=== PATIENT | female | born 1945 | race Caucasian/White ===

== ENCOUNTER 2017-05-06 19:48 | Emergency (ER) | payer BC ==
[2017-05-06] MEDS ORDERED: solu-MEDROL 125 MG IV ONE (21:02)
[2017-05-06] MEDS ORDERED: DUONEB 0.5-3 MG/3 ml Neb IH ONE ×2 (21:02→21:08)
--- NOTE | 2017-05-06 21:02 | ERPHSYRPT ---
- History of Present Illness Time Seen by Provider: 05/06/17 20:57 Source: patient Exam Limitations: no limitations Patient Subjective Stated Complaint: pt states she has been coughing for 5 days. states she has tried saline spray and neti pot with no relief. today she was coughing and had nose bleed. Triage Nursing Assessment: pt alert and oreinted, asnwers questions approp. pt ambulatory with steady gait noted. skin pink warm and dry. respirations nonlabored, lungs with exp wheeze throughout. frequent hacking cough noted. Physician History: The patient is a 71-year-old female with her complaining of a increasing cough for 5 days. She denies fever or chills. She denies shortness of breath. She does not smoke. Her past medical history is significant for hypothyroidism. Timing/Duration: day(s) (5) Cough Quality/Degree: severe, dry cough Possible Cause: no prior episodes Modifying Factors: Improves With: nothing Associated Symptoms: cough Allergies/Adverse Reactions: No Known Drug Allergies Allergy (Unverified 05/06/17 20:09) Home Medications: Levothyroxine Sodium 112 Mcg [Synthroid 112 Mcg] 112 mcg PO DAILY 05/06/17 [History] Hx Tetanus, Diphtheria Vaccination/Date Given: Yes Hx Influenza Vaccination/Date Given: No Hx Pneumococcal Vaccination/Date Given: No Immunizations Up to Date: Yes - Review of Systems Constitutional: No Fever, No Chills Eyes: No Symptoms Ears, Nose, & Throat: No Symptoms Respiratory: Cough Cardiac: No Chest Pain, No Edema, No Syncope Abdominal/Gastrointestinal: No Abdominal Pain, No Nausea, No Vomiting, No Diarrhea Genitourinary Symptoms: No Dysuria Musculoskeletal: No Back Pain, No Neck Pain Skin: No Rash Neurological: No Dizziness, No Focal Weakness, No Sensory Changes Psychological: No Symptoms Endocrine: No Symptoms Hematologic/Lymphatic: No Symptoms Immunological/Allergic: No Symptoms All Other Systems: Reviewed and Negative - Past Medical History Pertinent Past Medical History: Yes Neurological History: No Pertinent History ENT History: No Pertinent History Cardiac History: No Pertinent History Respiratory History: No Pertinent History Endocrine Medical History: Hypothyroidism Musculoskeletal History: No Pertinent History GI Medical History: No Pertinent History History: No Pertinent History Psycho-Social History: No Pertinent History Female Reproductive Disorders: No Pertinent History - Past Surgical History Past Surgical History: Yes Musculoskeletal: Orthopedic Surgery Other Surgical History: index finger, bunionectomy lt ft - Social History Smoking Status: Never smoker Exposure to second hand smoke: No Drug Use: none Patient Lives Alone: No - Nursing Vital Signs Nursing Vital Signs: Initial Vital Signs Temperature 98.2 F Temperature Source Oral Pulse Rate 71 Respiratory Rate 16 Blood Pressure [] 141/79 Pain Intensity 5 - Physical Exam General Appearance: mild distress Eye Exam: PERRL/EOMI, eyes nml inspection Ears, Nose, Throat Exam: normal ENT inspection, TMs normal, pharynx normal, moist mucous membranes Neck Exam: normal inspection, non-tender, supple, full range of motion Respiratory Exam: wheezing Cardiovascular Exam: regular rate/rhythm, normal heart sounds Gastrointestinal/Abdomen Exam: soft, No tenderness Pelvic Exam: not done Rectal Exam: not done Back Exam: normal inspection, No CVA tenderness, No vertebral tenderness Extremity Exam: normal inspection, normal range of motion Neurologic Exam: alert, oriented x 3, cooperative, normal mood/affect, sensation nml, No motor deficits Skin Exam: normal color, warm, dry, No rash Lymphatic Exam: No adenopathy SpO2 Interpretation: normal SpO2: 94 Oxygen Delivery: Room Air - Radiology Exams Chest X-ray Interpretation: Interpreted by me, Negative Ordered Tests: Active Orders 24 hr Category Date Time Status IV Insertion STAT Care 05/06/17 21:02 Active CHEST 2 VIEWS (PA AND LAT) Stat Exams 05/06/17 21:03 Taken Respiratory Nebulizer STAT RT 05/06/17 21:03 Completed Medication Summary Discontinued Medications Generic Name Dose Route Start Last Admin Trade Name Freq PRN Reason Stop Dose Admin Albuterol/Ipratropium 3 ml 05/06/17 21:02 05/06/17 21:10 Duoneb 0.5-3 Mg/3 Ml Neb IH 05/06/17 21:03 3 ml STAT ONE Administration Albuterol/Ipratropium Confirm 05/06/17 21:08 Duoneb 0.5-3 Mg/3 Ml Neb Administered 05/06/17 21:09 Dose 3 ml IH .STK-MED ONE Methylprednisolone Sodium Succinate 125 mg 05/06/17 21:02 05/06/17 21:15 Solu-Medrol 125 Mg IV 05/06/17 21:03 125 mg STAT ONE Administration Methylprednisolone Sodium Succinate Confirm 05/06/17 21:14 Solu-Medrol 125 Mg Administered 05/06/17 21:15 Dose 125 mg .ROUTE .STK-MED ONE - Progress Progress: improved Air Movement: good Progress Note: 05/06/17 22:17 After a DuoNeb treatment and Solu-Medrol 125 mg IV, wheezing has resolved and the patient is breathing better. Blood Culture(s) Obtained: No Antibiotics given: No Counseled pt/family regarding: lab results, diagnosis, rad results - Departure Time of Disposition: 22:17 Departure Disposition: Home Clinical Impression: Bronchitis, Bronchospasm with bronchitis, acute Condition: Stable Critical Care Time: No Additional Instructions: You have bronchitis with bronchospasm. You were given a DuoNeb treatment and Solu-Medrol 125 mg IV in the ER. The wheezing has resolved. Take a Z-Trae as directed. Take prednisone 60 mg daily for 5 days. Follow-up as needed. Prescriptions: Azithromycin 250 mg [Zithromax 250 MG TABLET] 250 mg PO ZPACK #6 tablet Prednisone 10 mg [Deltasone 10 mg] 60 mg PO DAILY #30 tablet
[2017-05-06] MEDS ORDERED: solu-MEDROL 125 MG ONE (21:14)
[2017-05-06 22:36] VITALS: BP 137/70; PULSE 79; O2SAT 97
--- NOTE | 2017-05-07 08:45 | XRAY ---
Indication: Cough. Comparison: None PA/lateral chest hyperinflated and clear. Heart and mediastinal structures within normal limits. Bony thorax intact with minimal spinal degenerative changes. Impression: Nonacute chest.
== END 2017-05-06 22:36 | disposition home or self-care (01) ==
LOC: ED 19:48
DX: J20.9 Acute bronchitis, unspecified (principal)
CPT/HCPCS: 36000; 71020; 94640; 96374; 99284; J2930; A9270-GY

== ENCOUNTER 2023-03-29 18:15 | Emergency (ER) | payer BC, MEDICARE ==
--- NOTE | 2023-03-29 19:01 | ERPHSYRPT ---
- History of Present Illness Time Seen by Provider: 03/29/23 18:56 Source: patient, family Exam Limitations: no limitations Patient Subjective Stated Complaint: PT HERE FOR A FALL, SHE TRIPPED OVER LAND SCAPING TMIBER AND TRIPPED LANDING ON LEFT SHOULDER Triage Nursing Assessment: PT CO PAIN TO LEFT SHOULDER, WALKED IN, ALERT, RESP EASY. SKIN W.D.P, NO SWELLING NOTED, HAS STRONG RADIAL PULSE Physician History: Hx confirmed by independent interview with family. Pt fell directly tripping over log onto left shoulder and now cannot raise it. did not hit head or neck or pass out or have any prodrome. Chest and Abd all nontender without peritoneal signs. Full ROm all other ext without pain. Wrist and elbow all nontender without pain and with full ROM. N/V and tendon fxn all intact distally. Occurred: just prior to arrival Method of Injury: direct blow, fell Quality: constant, sharpness, throbbing Severity of Pain-Max: moderate Severity of Pain-Current: moderate Extremities Pain Location: shoulder: left Modifying Factors: Improves With: cold therapy, immobilization, movement Associated Symptoms: none Allergies/Adverse Reactions: No Known Drug Allergies Allergy (Verified 03/29/23 18:24) Home Medications: Levothyroxine Sodium 112 Mcg [Synthroid 112 Mcg] 112 mcg PO DAILY 05/06/17 [History] Hx Tetanus, Diphtheria Vaccination/Date Given: Yes Hx Influenza Vaccination/Date Given: Yes Hx Pneumococcal Vaccination/Date Given: Yes Immunizations Up to Date: Yes Travel Risk - International Travel Have you traveled outside of the country in past 3 weeks: No - Coronavirus Screening Are you exhibiting any of the following symptoms?: No Close contact with a COVID-19 positive Pt in past 14-21 Days: No - Vaccine Status Have you recieved a Covid-19 vaccination: Yes [employer]: [employer] - Vaccination Dates Date of 2cond Vaccination (if applicable): 2020 - Review of Systems Constitutional: No Fever, No Chills Eyes: No Symptoms Ears, Nose, & Throat: No Symptoms Respiratory: No Cough, No Dyspnea Cardiac: No Chest Pain, No Edema, No Syncope Abdominal/Gastrointestinal: No Abdominal Pain, No Nausea, No Vomiting, No Diarrhea Genitourinary Symptoms: No Dysuria Musculoskeletal: Fall, Injury, Joint Pain, Joint Swelling, No Back Pain, No Neck Pain Skin: No Symptoms, No Rash Neurological: No Dizziness, No Focal Weakness, No Sensory Changes Psychological: No Symptoms Endocrine: No Symptoms Hematologic/Lymphatic: No Symptoms Immunological/Allergic: No Symptoms All Other Systems: Reviewed and Negative - Past Medical History Pertinent Past Medical History: Yes Neurological History: No Pertinent History ENT History: No Pertinent History Cardiac History: No Pertinent History Respiratory History: No Pertinent History Endocrine Medical History: Hypothyroidism Musculoskeletal History: No Pertinent History GI Medical History: No Pertinent History History: No Pertinent History Psycho-Social History: No Pertinent History Female Reproductive Disorders: No Pertinent History - Past Surgical History Past Surgical History: Yes Musculoskeletal: Orthopedic Surgery Other Surgical History: index finger, bunionectomy lt ft - Social History Smoking Status: Former smoker Exposure to second hand smoke: No Drug Use: none Patient Lives Alone: No - Nursing Vital Signs Nursing Vital Signs: Initial Vital Signs Temperature 97.9 F 03/29/23 18:24 Pulse Rate 80 03/29/23 18:24 Respiratory Rate 18 03/29/23 18:24 Blood Pressure 154/79 03/29/23 18:24 O2 Sat by Pulse Oximetry 99 03/29/23 18:24 Pain Scale Pain Intensity 6 - Physical Exam General Appearance: no apparent distress, alert Eyes, Ears, Nose, Throat Exam: normal ENT inspection, TMs normal, moist mucous membranes Neck Exam: normal inspection, non-tender, supple, full range of motion Cardiovascular/Respiratory Exam: chest non-tender, normal breath sounds, regular rate/rhythm, no respiratory distress Abdominal Exam: non-tender, No guarding Back Exam: normal inspection, No vertebral tenderness Shoulder Exam: bone tenderness, limited ROM, swelling Elbow/Forearm Exam: normal inspection, non-tender, no evidence of injury, normal ROM Wrist Exam: normal inspection, non-tender, no evidence of injury, normal ROM Hand Exam: normal inspection, non-tender, no evidence of injury, normal ROM DTR - Upper Extremity Exam: bicep (R): 2+, bicep (L): 2+, tricep (R): 2+, tricep (L): 2+ Neuro/Tendon Exam: normal sensation, normal motor functions, normal tendon functions Mental Status Exam: alert, oriented x 3, cooperative Skin Exam: normal color, warm, dry SpO2 Interpretation: normal SpO2: 99 O2 Delivery: Room Air Procedures - Splinting Location of Splint: Left, Upper Arm Type of Splint: Other (sling and swath) Splint Applied By: ED Nurse Pre-Proc Neuro Vasc Exam: normal Post-Proc Neuro Vasc Exam: neurovascular intact - Course Nursing assessment & vital signs reviewed: Yes - Radiology Exams Left Shoulder X-ray Interpretation: Reviewed by me, Discussed w/ radiologist, Other ( left proximal humeral head fracture comminuted ) Ordered Tests: Active Orders 24 hr Category Date Time Status Cold Application STAT Care 03/29/23 18:26 Active SHOULDER Stat Exams 03/29/23 18:32 Completed Medication Summary Discontinued Medications Generic Name Dose Route Start Last Admin Trade Name Freq PRN Reason Stop Dose Admin Ketorolac Tromethamine 30 mg 03/29/23 19:25 03/29/23 19:37 Ketorolac Tromethamine 30 Mg/Ml Inj IM 03/29/23 19:26 30 mg STAT ONE Administration Ketorolac Tromethamine Confirm 03/29/23 19:29 Ketorolac Tromethamine 30 Mg/Ml Inj Administered 03/29/23 19:30 Dose 30 mg .ROUTE .STCloubrain-MED ONE - Progress Progress: improved, re-examined Progress Note: 03/29/23 21:37 discussed with pt and family that additional conditions/injuries could be evolving undetected and they prefer outp pt f/u rather than further w/u in ER especially since no other symptoms and will return if any develop. Counseled pt/family regarding: diagnosis, need for follow-up, rad results Medical Desision Making - Independent Historian Additional History obtained from: Spouse - Discussion of managment Care discussed with:: specialist Reviewed:: Test results Agreed on:: Treatment plan, need for follow-up - Diagnostic Testing Diagnostic test were ordered, analyzed, and reviewed by me: Yes Radiological Interpretation: Reviewed by me, Discussed w/ radiologist - Risk of complications The pt has a mod risk of morbidity or mortality based on: Need for major surgery in otherwise healthy patient - Departure Departure Disposition: Home Clinical Impression: communited left humeral head fracture Condition: Good Critical Care Time: No Referrals: EDWINA ALVARADO MD [Primary Care Provider] - Follow up/PCP as directed Instructions: Shoulder Fracture (DC) Additional Instructions: see orthopedic /call friday. use sling to protect. Return meantime if numbness or increased pain or any other symptoms of concern. followup your blood pressure with your Dr. Prescriptions: Hydrocodone/Acetaminophen [Hydrocodone-Acetamin 5-325 mg] 1 - 2 tab PO Q6HPRN PRN #14 tablet MDD 4 PRN Reason: Pain
[2023-03-29] MEDS ORDERED: TORAdol 30 mg Injection IM ONE (19:25)
[2023-03-29] MEDS ORDERED: TORAdol 30 mg Injection ONE (19:29)
--- NOTE | 2023-03-29 21:14 | XRAY ---
Indication: Pain following fall. Comparison: None 3 portable views left shoulder demonstrates comminuted humeral head fracture with mildly displaced lateral fracture fragment. Elsewhere osteopenia, multilevel cervicothoracic degenerative spondylosis, and tiny pulmonary calcified granulomas. Comment: Telephone report given to ordering clinician, Dr. Tomi Razo at 2110 hrs on March 29, 2023.
[2023-03-29] MEDS ORDERED: NORCO 5/325 MG PO ONE ×2 (21:40→22:00)
[2023-03-29] MEDS ORDERED: NORCO 5/325 MG ONE ×2 (21:51→22:11)
[2023-03-29 22:14] VITALS: BP 177/95; PULSE 88; O2SAT 96
== END 2023-03-29 22:21 | disposition home or self-care (01) ==
LOC: ED 18:15
DX: S42.292A Other displaced fracture of upper end of left humerus, initial encounter for closed fracture (principal); W01.0XXA Fall on same level from slipping, tripping and stumbling without subsequent striking against object, initial encounter; Z79.891 Long term (current) use of opiate analgesic; Z79.899 Other long term (current) drug therapy
CPT/HCPCS: 73030; 96372; 99283; J1885; L3650; A9270-GY